=== PATIENT | male | born 1990 | race African-American/Black ===

== ENCOUNTER 2018-12-07 11:18 | Emergency (ER) | payer SELFPAY ==
[~2018-12-07] VITALS: Ht 198.1 cm; Wt 102.0 kg
[2018-12-07 11:27] VITALS: BP 140/69
== END 2018-12-07 12:09 | disposition home or self-care (01) ==
LOC: ER 11:18
DX: J02.8 Acute pharyngitis due to other specified organisms (principal)
CPT/HCPCS: 99282